=== PATIENT | female | born 1965 | race African-American/Black ===

== ENCOUNTER 2018-10-24 10:18 | Inpatient (IN) | payer OTHER ==
[2018-10-10 12:25] LABS: HEMATOCRIT 42.2 % (37.0-47.0); HEMOGLOBIN 14.1 gm/dL (12.0-15.0); MCH 30.5 pg (26.0-34.0); MCHC 33.3 g/dL (28.0-37.0); MCV 91.5 fL (80.0-100.0); RBC 4.61 mil/uL (4.20-5.00); RDW 13.2 % (10.5-14.5); WBC 6.2 thou/uL (4.0-11.0)
[2018-10-10 12:26] LABS: URINE BILIRUBIN NEGATIVE (Negative); URINE BLOOD 2+ (Negative); URINE CLARITY CLEAR; URINE COLOR YELLOW; URINE GLUCOSE-RANDOM* NEGATIVE (Negative); URINE KETONES NEGATIVE (Negative); URINE LEUKOCYTES-REFLEX NEGATIVE (Negative); URINE NITRITE-REFLEX NEGATIVE (Negative); URINE PROTEIN (DIPSTICK) NEGATIVE (Negative); URINE UROBILINOGEN 0.2 E.U./dl (0.2-1.0)
[2018-10-10 12:33] LABS: ALBUMIN 4.1 g/dL (3.4-5.0); CALCIUM 9.7 mg/dL (8.5-10.1); CREATININE 0.7 mg/dL (0.6-1.0); POTASSIUM 3.8 mmol/L (3.5-5.1)
[2018-10-10 12:41] LABS: PROTIME 9.5 Seconds (9.3-11.4)
[2018-10-10 12:43] LABS: CASTS None Seen /LPF (None Seen); MUCUS >6 Heavy strn/LPF (None Seen); SQUAMOUS 0-3 Few /LPF (0-3); URINE WBC-REFLEX 0-5 Rare /HPF (0-5)
[2018-10-10 12:44] LABS: BACTERIA-REFLEX 1-9 Few /HPF (None Seen); CRYSTALS None Seen /LPF (None Seen); URINE RBC 3-10 Few /HPF (0-2)
--- NOTE | 2018-10-10 13:26 | EKG ---
[address] [address] ELECTROCARDIOGRAM REPORT Name: VIJAY RAHMAN Room #: [facility]#: [id number] ������������������ Admission: ������������������ Attend Phys: Tono Call MD Discharge: ������������������ Date of : 61 Report #: [id number] ����������������������������������������������������������������� [id number] THIS REPORT FOR: //name// [facility] Test Date: 2018-10-10 Test Time: 12:24:11 Pat Name: VIJAY LACEY Department: Room: Gender: F Customer Service Agent: YONAS BOWDEN : 1965 Requested By: Tono Call Order Number: [id number] MD: Lionel Person Measurements Intervals [place]nut Rate: 56 P: 26 SD: 186 QRS: 6 QRSD: 70 T: 28 QT: 399 QTc: 386 Interpretive Statements Sinus rhythm Abnormal R-wave progression, early transition No previous ECG available for comparison Electronically Signed On 10-10-2018 13:26:31 CDT by Lionel Person [email or web address] ��������������������������������������������� <ELECTRONICALLY SIGNED> ���������������������������������������� By: Lionel Person MD ��������������������������������������������� 10/10/18 1326 1224 1224 MD SANDRO Alex
[~2018-10-24] VITALS: Ht 177.8 cm; Wt 95.3 kg
[~2018-10-24 10:18] MED LIST: CENTRUM SILVER1 EAC4 PO; NEURONTIN 300300 M1 PO
[2018-10-24 10:39] VITALS: BP 111/56
[2018-10-24 17:15] VITALS: BP 134/80
[2018-10-24 17:45] VITALS: BP 141/87
[2018-10-24 18:15] VITALS: BP 118/69
[2018-10-24 18:57] VITALS: BP 122/71
--- NOTE | 2018-10-24 21:32 | NUR ---
Admitted in the floor from OR due to L TKR. A+Ox4. On room air. With SL at L hand- D5NS1/2 started as prescribed, infusing at 100cc/hr 1 out of 2 bags. Pt tolerated clear liquids- advanced to regular diet, pt able to tolerate regular diet, no nausea, no vomiting and no abdominal pain noted. With surgical wound at L Knee C/D/I, ARTEMIO dressing, TEDs, Polar pack and SCDs in place. Pt accompanied by at bedside. Pt able to void. Pain scale of 4/10- informed pt that she has prescribed pain meds. A/w PT evaluation. Falls risk- fall bundle in place. Admission forms signed. Admission care rendered. To continue monitoring pt. No signs of infection noted on surgical wound. Assisted in ADLs.
[2018-10-24 23:23] VITALS: BP 126/67
[2018-10-25 05:20] VITALS: BP 125/66
[2018-10-25 05:43] LABS: HEMATOCRIT 36.2 % (37.0-47.0); HEMOGLOBIN 11.6 gm/dL (12.0-15.0); MCHC 32.2 g/dL (28.0-37.0); MCV 93.1 fL (80.0-100.0); RBC 3.88 mil/uL (4.20-5.00); RDW 13.5 % (10.5-14.5); WBC 12.8 thou/uL (4.0-11.0)
[2018-10-25 07:19] VITALS: BP 120/62
--- NOTE | 2018-10-25 07:48 | NUR ---
progress pt a/o x4 denies pain. ivf's infusing as ordered. pt tolerating reg diet and clear liquids. left knee covered with intact nedra drsg, pedal pulse positive foot warm with brisk cap refill, sensation intact and able to pedal and dorsi flex without difficulty. ivf's and post op abt's given as ordered pt not oob yet waiting for PT/OT. continue to monitor.
[2018-10-25] MEDS ORDERED: ASPIR 8181 MG PO (08:53)
--- NOTE | 2018-10-25 09:08 | O ---
[facility] [place] [address] OPERATIVE REPORT Name: VIJAY RAHMAN Room #: 454-P [facility] IN M.R.#: [id number] Admission: 10/24/18 ������������������ Attend Phys: Tono Call MD Discharge: ������������������ Date of : 61 Report #: [id number] THIS REPORT FOR: //name// CC: Young Call DATE OF SERVICE: 10/24/2018 PREOPERATIVE DIAGNOSIS: Left knee osteoarthritis. POSTOPERATIVE DIAGNOSIS: Left knee osteoarthritis. PROCEDURE: Left total knee arthroplasty using Navio robotic assistance. SURGEON: Tono Call MD MOTION GRAPHICS ARTIST: Madeline Mantilla PA-C INDICATIONS FOR MOTION GRAPHICS ARTIST: Throughout the case, extensive retraction and manipulation of the knee was required. This was afforded to me by my assistant professor of sociology. ANESTHESIA: LMA with an adductor canal block. IMPLANTS: Feliciano and Nephew size 4 Journey II BCS Oxinium femur, a size 3 tibia, a size 11 polyethylene and a size 35 patella. TOURNIQUET TIME: 65 minutes. ESTIMATED BLOOD LOSS: 25 mL. COMPLICATIONS: None. SPECIMENS: None. CONDITION UPON LEAVING THE OPERATING ROOM: Stable. INDICATIONS FOR PROCEDURE: The patient is a 52-year-old female with severe left knee osteoarthritis. She had failed conservative measures for this and after discussion with her, she elected for left total knee arthroplasty. DESCRIPTION OF PROCEDURE: Risks, benefits, alternatives, complications were discussed in detail with the patient including but not limited to risk of anesthesia, risk of damage to nerves, arteries, blood vessels, risk for infection, bleeding, risk for continued knee pain and need for reoperation. Informed consent was obtained from the patient. Left knee was appropriately marked in the preoperative holding area. IV Ancef was given for preoperative [address] [address] OPERATIVE REPORT Name: VIJAY RAHMAN Room #: 454-P [facility] IN M.R.#: [id number] Admission: 10/24/18 ������������������ Attend Phys: Tono Call MD Discharge: ������������������ Date of : 61 Report #: [id number] antibiotics. She was brought to the operating room and placed in the supine position on operating room table. LMA anesthesia was induced without complication. Tourniquet was placed on the left thigh. Left lower extremity was prepped and draped in normal sterile fashion. Timeout was performed properly identifying the patient and procedure as well as the instrumentation and implants. All in the operating room were in agreement. Left lower extremity was exsanguinated, tourniquet was inflated. Tourniquet time was 65 minutes. Standard midline approach to the knee was made with 10 blade through the skin. Dissection was taken down sharply to the fascia and deep flaps were developed medially and laterally. Fresh 10 blade was used to make a medial parapatellar arthrotomy and the knee was inspected. There was severe tricompartmental osteoarthritis. ACL and PCL were removed sharply. Reference pins were placed in the femur and the tibia and the knee was digitally mapped using the [employer] robotic system. Intraoperative plan was made and we sized the size 4 femur with a size 3 tibia and a size 10 spacer. After acceptance of the intraoperative plan, the distal femoral cut was made with a Navio bur and the distal femoral cutting block was then pinned in place and the chamfer cuts were made. Attention was then turned to the tibia. Tibial resection guide was pinned in place using the Navio system for placement and the tibial resection was made. Flexion and extension gaps were then checked and found to have good balance in flexion and extension both medially and laterally. The remainder of the menisci removed with Bovie cautery. The tibia was sized and found to be a size 3. A size 3 tibial trial was placed, pinned and punched. A size 4 femoral trial was placed and the box cut was made. This was then trialed with a size 10 and then size 11 polyethylene. The size 11 polyethylene had the best fit with a millimeter laxity medially and laterally throughout range of motion. A 9 mm was then resected from the posterior surface of the patella and a size 35 patellar trial button was placed. Knee was taken through range of motion, found to be stable, found to have good patellar tracking. After this, all trial components were removed. Bony ends were thoroughly irrigated with normal saline. Final size 3 tibia, size 4 Journey II BCS Oxinium femur and a size 35 patella were cemented in place using standard cementation techniques. While the cement cured, a periarticular injection consisting of morphine, ropivacaine, epinephrine and Toradol was placed around the knee joint capsule. After the cement cured, the tourniquet was deflated. Hemostasis was obtained with Bovie cautery. Final size 11 polyethylene was placed. A gram of vancomycin was placed deep in the joint. The fascia was closed with 0 Vicryl, skin was closed with 2-0 Vicryl, 3-0 Monocryl. Dermabond and a ARTEMIO dressing was applied. The patient tolerated this procedure well and went to recovery room under care of anesthesia postoperatively. ��������������������������������������������� <ELECTRONICALLY SIGNED> ���������������������������������������� By: Tono Call MD ��������������������������������������������� 10/25/18 0908 1629 1843 Tono Call MD /nt
[2018-10-25 10:15] VITALS: BP 120/62
--- NOTE | 2018-10-25 14:22 | NUR ---
PT A&OX4, VSS, DENIES PAIN AT THIS TIME. PATIENT HAS BEEN RESTING IN BED WITH 1 ASSIST TO THE BATHROOM. PATIENT STATES HER PAIN IS EXACERBATED BY MOVEMENT. NO SIGNS OF DISTRESS, WILL CONTINUE TO MONITOR.
--- NOTE | 2018-10-25 14:25 | NUR ---
PT ADMITTED RELATED TO LEFT TOTAL KNEE REPLACEMENT. CM REVIEWED CHART AND SPOKE WITH CARE TEAM. CM MET WITH PT AT BEDSIDE THIS DAY. PT IS A&O X4. CM ROLE INTRODUCED. PT INDICATED SHE LIVES IN A HOUSE WITH HER SPOUSE WITH 7 STEPS TO ENTER AND 14 STEPS INSIDE. 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 PT INIDCATED NO DME OR HH HX. PT INDICATED SHE WILL NEED A FWW ISSUSED PTD. PT INDICATED SHE IS SET UP WITH AN OP PT APPOINTMENT AT [facility] ON MONDAY. PT INDICATED SHE PLANS TO DC HOME TOMORROW. CM TO FOLLOW INDICATED WITH DC PLANNING.
--- NOTE | 2018-10-25 14:55 | NUR ---
PT A&0X, VSS, PAIN IN LEFT KNEE. PAIN MANAGED WITH MEDICATION. ARTEMIO DRESSING C/D/I. PATIENT HAS SENSATION IN LEG, WARM TO TOUCH, CAP REFILL <3 SECS, 1+ PULSE. PATIENT PARTICIPATED IN PT. POLAR PACK AND DAWN HOSE IN PLACE. LAST BAG OF D51/2NS COMPLETE. NO SIGNS OF DISTRESS, DENIES N/V, WILL CONTINUE TO MONITOR.
[2018-10-25 19:25] VITALS: BP 131/63
[2018-10-26 05:45] LABS: HEMATOCRIT 31.1 % (37.0-47.0); HEMOGLOBIN 10.2 gm/dL (12.0-15.0); MCH 30.7 pg (26.0-34.0); MCHC 32.9 g/dL (28.0-37.0); MCV 93.1 fL (80.0-100.0); RBC 3.34 mil/uL (4.20-5.00); RDW 13.4 % (10.5-14.5); WBC 10.4 thou/uL (4.0-11.0)
[2018-10-26 08:31] VITALS: BP 119/64
[2018-10-26 13:05] VITALS: BP 119/64
--- NOTE | 2018-10-26 13:43 | NUR ---
PT DISCHARGED HOME WITH SELF CARE. PT PARTICIPATED WITH PHYSICAL THERAPY AND CLEARED. VSS, PAIN IN LEFT KNEE. PAIN MANAGED WITH MEDICATION. AT BEDSIDE. NO SIGNS OF DISTRESS. ARTEMIO DRESSING C/D/I, POLAR ICE PACK IN PLACE. ALL BELONGINGS SENT HOME WITH PATIENT, IV REMOVED.
== END 2018-10-26 16:24 | disposition home or self-care (01) | DRG 470 ==
LOC: 4W 10:18 → PRE 10:18 → TBA 10:18 → PRE 11:53 → 4W 17:11 → 4S 10-26 12:13 → ENTRNSPT 10-26 13:11 → EDTRNSPTSTS 10-26 13:14 → 4S 10-26 16:24
PROVIDERS: ADMIT Orthopaedic Surgery
PROC: 8E0Y0CZ Robotic Assisted Procedure of Lower Extremity, Open Approach (ICD-10-PCS; principal; 2018-10-24)
PROC: 0SRD069 Replacement of Left Knee Joint with Oxidized Zirconium on Polyethylene Synthetic Substitute, Cemented, Open Approach (ICD-10-PCS; principal; 2018-10-24)
DX: M17.12 Unilateral primary osteoarthritis, left knee (principal); Z79.899 Other long term (current) drug therapy
CPT/HCPCS: 10047; 50010; 50101; 50415; 50954; 51130; 51225; 51320; 52001; 52282; 53000; 53078; 54118; 55372; 56527; 56528; 57095; 57103; 57110; 57127; 57180; 62110; 62900; 70005

== ENCOUNTER → 2019-11-29 | Outpatient (CLI) | payer OTHER ==
[~2019-11-29] MED LIST changes: +ASPIR 8181 MG PO; +MEGARED OMEGA-1 EAC1 PO
== END ==
LOC: LAB 14:17
PROVIDERS: ATTEND Orthopaedic Surgery
DX: Z01.812 Encounter for preprocedural laboratory examination (principal); Z20.828 Contact with and (suspected) exposure to other viral communicable diseases

== ENCOUNTER 2019-12-04 08:48 | Inpatient (IN) | payer OTHER ==
[~2019-12-04] VITALS: Ht 177.8 cm; Wt 95.3 kg
[2019-12-13] VITALS (10 sets, daily range): BP systolic 107–125; BP diastolic 66–77
--- NOTE | 2019-12-13 16:03 | NUR ---
Pt transferred to unit from pacu. Dressing on lt hip c/d/i. Ice pack in place. SCDs and DAWN hose in place. Denies pain at this time. Family at bedside. Call light within reach. Fall precautions in place. Will continue to monitor.
[2019-12-14 03:47] VITALS: BP 115/68
[2019-12-14 05:23] LABS: HEMATOCRIT 32.2 % (37.0-47.0); HEMOGLOBIN 10.8 gm/dL (12.0-15.0); MCH 30.9 pg (26.0-34.0); MCHC 33.5 g/dL (28.0-37.0); RBC 3.5 mil/uL (4.20-5.00); RDW 13.5 % (10.5-14.5)
--- NOTE | 2019-12-14 06:25 | NUR ---
PT AOX4. PT REPORTS 6-7/10 PAIN IN LEFT HIP. PT RECEIVING SCHEDULED PO MORPHINE BID, PRN PO NORCO Q4HR, WITH PRN PO APAP Q4HR AVAILABLE. PT TOLERATING PO INTAKE OF FLUIDS AND REGULAR DIET. PT RESTING IN BED THROUGHOUT SHIFT. FREQUENT REPOSITIONING ENCOURAGED. PT NOTED TO SHIFT INDEPENDENTLY WHILE IN BED. PT NOTED TO HAVE DIFFICULTY MAINTAINING HIP PRECAUTIONS DUE TO REPORTS OF 'WILD SLEEPING', PILLOW REMAINS IN PLACE, ABDUCTOR WEDGE TO BE OBTAINED. PT EXPRESSES RELUCTANCE MOVING LLE DUE TO REPORTS OF WORSENING PAIN. PT VOIDING PER BEDPAN. PT ENCOURAGED TO NOTIFY STAFF FOR ALL NEEDS, CALL LIGHT WITHIN REACH, BED ALARM ON, BED IN LOWEST POSITION, FREQUENT MONITORING WILL CONTINUE.
[2019-12-14 08:00] VITALS: BP 115/59
--- NOTE | 2019-12-14 09:48 | NUR ---
Assumed care of pt at 0700. Pt a&ox4. Pt controlled with prn pain meds. Dressing c/d/i. Abductor pillow in place while in bed. Patient worked with physical therapy and was cleared to go home. Provider paged for discharge order. [place] order.
[2019-12-14 10:00] VITALS: BP 115/59
--- NOTE | 2019-12-16 17:58 | O ---
[facility] [place] [address] OPERATIVE REPORT Name: VIJAY RAHMAN Room #: 439-P [facility] IN M.R.#: [id number] Admission: 12/13/19 Attend Phys: Tono Call MD Discharge: 12/14/19 Date of : 61 Report #: [id number] THIS REPORT FOR: cc: Young Baker MD, Richard K. MD Abraham,Tono Scruggs MD ~ CC: Young Call DATE OF SERVICE: 12/13/2019 PREOPERATIVE DIAGNOSIS: Left hip osteoarthritis. POSTOPERATIVE DIAGNOSIS: Left hip osteoarthritis. PROCEDURE: Left total hip arthroplasty. SURGEON: Tono Call MD ELECTRON GUN ASSEMBLER: Madeline Mantilla PA-C INDICATIONS FOR ELECTRON GUN ASSEMBLER: Throughout the case, extensive retraction and manipulation of the hip was required including dislocation and reduction. This was afforded to me by my doctor's assistant. ANESTHESIA: General. IMPLANTS: Feliciano and Nephew size 52 R3 acetabular cup with 1 acetabular screw, a size 13 high offset Synergy press-fit stem with a 36, -3 Oxinium head and an Arthrex FiberTape prophylactic femur fixation. ESTIMATED BLOOD LOSS: 100 mL. COMPLICATIONS: None. SPECIMENS: None. CONDITION UPON LEAVING THE OPERATING ROOM: Stable. INDICATIONS FOR PROCEDURE: The patient is a 53-year-old woman with left hip osteoarthritis who failed conservative measures for this and after discussion with her, she elected for left total hip arthroplasty. DESCRIPTION OF PROCEDURE: Risks, benefits, alternatives, complications were discussed in detail with the patient including but not limited to risk of anesthesia, risk of damage to nerves, arteries, blood vessels, risk for [facility] [address] [place] [address] OPERATIVE REPORT Name: VIJAY RAHMAN Room #: 439-P [facility] IN .R.#: [id number] Admission: 12/13/19 Attend Phys: Tono Call MD Discharge: 12/14/19 Date of : 61 Report #: [id number] infection, bleeding, risk for continued hip pain, leg length discrepancy, instability and need for reoperation. Informed consent was obtained from the patient. Left hip was appropriately marked in the preoperative holding area. IV Ancef was given for preoperative antibiotics. She was brought to the operating room and placed in supine position on operating room table. General anesthesia was induced without complication. She was then placed in the right lateral decubitus position with the left hip uppermost. Left hip and lower extremity were prepped and draped in normal sterile fashion. Timeout was performed properly identifying the patient and procedure as well as the instrumentation and implants. All in the operating room were in agreement. Standard posterior approach to the hip was made with 10 blade through the skin. Dissection was taken down sharply to the fascia and deep flaps were developed anteriorly and posteriorly. Fresh 10 blade was used to make a fascial incision. This was taken proximally and distally with curved Blackmon scissor. Charnley retractor was placed. Trochanteric bursa was taken down with Bovie cautery. Piriformis tendon was identified, tagged and taken down with Bovie. Short external rotators were also taken down with Bovie cautery. Capsulotomy was made and capsule ends were tagged for later repair. Hip was dislocated. There were extensive osteoarthritic changes to the femoral head. Femoral neck cut was made 1 cm proximal to lesser trochanter based on preoperative templating and the femoral head was removed. Deep acetabular retractors were placed. Labrum was removed sharply. Pulvinar was removed with Bovie cautery. Acetabulum was then sequentially reamed up to a size 52, at which point, there was excellent bleeding cancellous bone. A size 51 trial cup was placed, found to have a good fit. A final size 52 R3 acetabular cup was then placed and seated. One acetabular screw was placed for backup fixation and a polyethylene liner for a 36 head was placed. After this, attention was turned to the femur, 1 Arthrex FiberTape was placed around the proximal femur for prophylactic fixation and the femur was reamed and broached up to a size 13, at which point, the size 13 broach was stable. This was trialed with a high offset neck and a 40+0 head. Hip was reduced, taken through range of motion, found to be stable, found to have equal leg lengths. Hip was dislocated and broach was removed. Final size 13 high offset Synergy press-fit stem was placed and seated. This did not seat quite as far as the broach and so we trialled a 36, -3 head. Hip was reduced, taken through range of motion, found to be stable, found to have equal leg lengths. Hip was dislocated one last time and a final size 36, -3 Oxinium head was placed. Hip was reduced, taken through range of motion, found to be stable, found to have equal leg lengths. The hip was thoroughly irrigated with normal saline. Periarticular injection consisting of morphine, ropivacaine, epinephrine and Toradol was placed around the hip joint capsule. A gram of vancomycin was placed deep in the joint capsule and piriformis were repaired with 0 FiberWire. Fascia was closed with 0 Vicryl, skin was closed with 2-0 Vicryl, 3-0 Monocryl. Dermabond and a ARTEMIO dressing was applied. The patient [address] [address] OPERATIVE REPORT Name: VIJAY RAHMAN Room #: 439-P [facility] IN M.R.#: [id number] Admission: 12/13/19 Attend Phys: Tono Call MD Discharge: 12/14/19 Date of : 61 Report #: [id number] tolerated this procedure well and went to recovery room under care of Anesthesia postoperatively. <ELECTRONICALLY SIGNED> By: Tono Call MD 12/16/19 1758 1524 1541 Tono Call MD /nt
== END 2019-12-14 11:06 | disposition home or self-care (01) | DRG 470 ==
LOC: PRE 08:48 → TBA 12-13 10:34 → PRE 12-13 12:21 → 4S 12-13 15:32
PROVIDERS: ADMIT Orthopaedic Surgery; ATTEND Orthopaedic Surgery
PROC: 0SRB06A Replacement of Left Hip Joint with Oxidized Zirconium on Polyethylene Synthetic Substitute, Uncemented, Open Approach (ICD-10-PCS; principal; 2019-12-13)
DX: M16.12 Unilateral primary osteoarthritis, left hip (principal); Z79.899 Other long term (current) drug therapy
CPT/HCPCS: 10195; 50010; 50101; 50382; 50414; 53000; 53078; 53368; 54118; 56524; 56527; 56528; 56530; 57095; 57103; 62110; 62900; 70005

== ENCOUNTER → 2019-12-09 | Outpatient (CLI) | payer OTHER | LOC: LAB 10:03 | PROVIDERS: ATTEND Orthopaedic Surgery | DX: Z01.812 Encounter for preprocedural laboratory examination (principal); Z20.828 Contact with and (suspected) exposure to other viral communicable diseases ==